=== PATIENT | male | born 1955 | race Caucasian/White ===

== ENCOUNTER 2017-04-07 10:48 | Emergency (ER) | payer MEDICARE, OTHER ==
--- NOTE | 2017-04-07 11:05 | ED ---
General Adult HPI - General Chief complaint: Wound/Laceration Stated complaint: left hand/finger injury laceration Time Seen by Provider: 04/07/17 10:52 Source: patient, RN notes reviewed Mode of arrival: ambulatory Limitations: no limitations - History of Present Illness Initial comments: Patient 61-year-old male who presents emergency room today with a chief complaint of a laceration to the left middle finger. He does admit that he was helping his nephew cut a board. He states he had his hand underneath the piece of wood and when the saw came over accidentally cut his finger. He states his tetanus is up-to-date. He does admit to pain locally but states he does have full range of motion. He denies any other complaint or symptoms. Patient denies any recent fever, chills, shortness of breath, chest pain, back pain, abdominal pain, nausea or vomiting, headaches or visual changes, or any other complaints. - Related Data Home Medications Medication Instructions Recorded Confirmed HYDROcodone/APAP 7.5-325MG [[place] 1 tab PO DIRECTED 04/07/17 04/07/17 7.5-325] Allergies Allergy/AdvReac Type Severity Reaction Status Date / Time Penicillins Allergy Unknown Verified 04/07/17 11:01 Review of Systems ROS Statement: Those systems with pertinent positive or pertinent negative responses have been documented in the HPI. ROS Other: All systems not noted in ROS Statement are negative. Past Medical History Past Medical History: No Reported History Additional Past Medical History / Comment(s): chronic ankle pain History of Any Multi-Drug Resistant Organisms: None Reported Past Surgical History: No Surgical Hx Reported Past Psychological History: No Psychological Hx Reported Smoking Status: Never smoker Past Alcohol Use History: Occasional Past Drug Use History: None Reported General Exam - General Exam Comments Initial Comments: General: The patient is awake and alert, in no distress, and does not appear acutely ill. Neck: The neck is supple. Cardiovascular: There is a regular rate and rhythm. No murmur, rub or gallop is appreciated. Respiratory: Lungs are clear to auscultation, respirations are non-labored, breath sounds are equal. No wheezes, stridor, rales, or rhonchi. Musculoskeletal: Patient has full range of motion. Sensation intact. Pulses equal bilaterally 2+. Cap refill less than 2 seconds. Strength 5/5 in all areas. Neurological: A&O x 3. CN II-XII intact, There are no obvious motor or sensory deficits. Coordination appears grossly intact. Speech is normal. Skin: Patient does have a laceration to the lateral volar aspect of the left distal middle finger. Laceration measuring approximately 2 cm. No active bleeding. Psychiatric: Normal mood and affect. Limitations: no limitations Course Vital Signs 04/07/17 10:48 Temperature 97.0 F L Pulse Rate 64 Respiratory 18 Rate Blood Pressure 183/83 O2 Sat by Pulse 97 Oximetry Procedures - Procedures Initial comment: 2 cm L-shaped laceration volar aspect of the left finger with no active bleeding. The skin was anesthetized with 1% lidocaine. The laceration was then cleansed with and irrigated with normal saline. The wound was inspected, and there was no evidence of injury to deep structures. No foreign body was noted in the wound. A total of 4 skin sutures were placed utilizing 4-0 nylon. Medical Decision Making - Medical Decision Making Patient's tetanus up-to-date. Laceration was irrigated and closed here the emergency room. Patient will be started on antibiotic. He has full range of motion. Advised to have sutures removed in 8-10 days watch for signs of infection. Disposition Clinical Impression: Finger laceration Disposition: HOME SELF-CARE Condition: Good Instructions: Laceration (ED) Additional Instructions: Please return to the emergency room in 8-10 days to have sutures removed. Please watch for any signs of infection which may include increased pain, swelling, redness, fever or chills. Please return to emergency room for any signs of infection do occur. Please use clean soap and water over the area to prevent scabbing over your stitches. Please leave wound covered for the first 24-48 hours and then leave wound open to air. Please return to the emergency room for any other concerns. Referrals: None,Stated [Primary Care Provider] - 1-2 days Time of Disposition: 11:43
--- NOTE | 2017-04-07 11:19 | XR ---
EXAMINATION TYPE: XR finger LT DATE OF EXAM: 04/07/2017 COMPARISON: NONE HISTORY: Laceration left middle finger cutting wood TECHNIQUE: Three-view left middle finger FINDINGS: There is soft tissue injury over the radial aspect of the distal phalanx middle finger. Und erlying osseous structures appear intact. No acute fractures are evident. Joint spaces are preserved. IMPRESSION: 1. No acute osseous abnormality left middle digit. 2. Soft tissue injury distal lateral left middle finger.
[2017-04-07 12:15] VITALS: BP 144/80; PULSE 67; RESP 18; TEMP 97.8
== END 2017-04-07 12:13 | disposition home or self-care (01) ==
LOC: EC 10:48
DX: S61.213A Laceration without foreign body of left middle finger without damage to nail, initial encounter (principal); Z79.891 Long term (current) use of opiate analgesic; Z88.0 Allergy status to penicillin; W31.2XXA Contact with powered woodworking and forming machines, initial encounter; Y93.89 Activity, other specified
CPT/HCPCS: 12001; 99283